=== PATIENT | male | born 1980 | race Caucasian/White ===

== ENCOUNTER 2018-01-13 22:16 | Emergency (ER) | payer BC ==
[~2018-01-13] VITALS: Ht 170.2 cm; Wt 100.8 kg
[2018-01-13 23:14] LABS: BASOPHIL COUNT 0.1 K/uL (0-0.1); EOSINOPHIL (%) 2.5 % (0-5); EOSINOPHIL COUNT 0.3 K/uL (0-0.3); HEMATOCRIT 41.9 % (38.0-50.0); HEMOGLOBIN 14.6 G/DL (12.5-16.6); IMMATURE GRANULOCYTE (%) 0.6 % (0.0-0.7); LYMPHOCYTE (%) 24.1 % (15-42); LYMPHOCYTE COUNT 2.5 K/uL (1.0-2.8); MCH 31.8 PG (29.0-34.0); MCHC 34.8 G/DL (30.0-36.0); MCV 91.3 FL (86-99); MONOCYTE (%) 6.6 % (3-12); MONOCYTE COUNT 0.7 K/uL (0-0.8); NEUTROPHIL (%) 65.2 % (45-76); NEUTROPHIL COUNT 6.8 K/uL (1.8-6.4); PLATELET COUNT 289 K/uL (156-360); RBC DIS.WIDTH-CV 12.2 % (11.8-14.6); RBC DIS.WIDTH-SD 40.6 % (39-53); RED BLOOD COUNT 4.59 M/uL (4.00-5.50); WHITE BLOOD COUNT 10.4 K/uL (4.1-10.2)
[2018-01-13 23:31] LABS: CHLORIDE 104 mEq/L (99-109); POTASSIUM 4.2 mEq/L (3.7-5.4); SODIUM 140 mEq/L (136-147)
[2018-01-13 23:32] LABS: GLUCOSE 95 mg/dL (70-99)
[2018-01-13 23:36] LABS: CREATININE 0.8 mg/dL (0.6-1.3)
[2018-01-13 23:37] LABS: GFR ESTIMATE (CALCULATED) > 59 mL/min/ (58.99-99999); UREA NITROGEN (BUN) 12 mg/dL (9-23)
[2018-01-14] MEDS ORDERED: PREDNISONE20 MG PO (00:05)
[2018-01-14] MEDS ORDERED: FLONASE16 G1 BOTH NARES (00:18)
[2018-01-14] MEDS ORDERED: MUCINEX D ER T1 EACH PO (00:18)
[2018-01-14 00:27] VITALS: BP 170/115
== END 2018-01-14 00:29 | disposition home or self-care (01) ==
LOC: EME 22:16
DX: J04.0 Acute laryngitis (principal); H65.93 Unspecified nonsuppurative otitis media, bilateral; J30.9 Allergic rhinitis, unspecified; R09.82 Postnasal drip
CPT/HCPCS: 70360; 80048; 85025; 87651 90; 99281; 99284; J7512